=== PATIENT | male | born 1955 | race Hispanic/Latino ===

== ENCOUNTER 2021-07-14 10:42 | Outpatient (CLI) | payer BC | END 2021-07-14 10:43 | disposition home or self-care (01) | LOC: BICULT 10:42 | PROVIDERS: ATTEND Internal Medicine | DX: N28.1 Cyst of kidney, acquired (principal) | CPT/HCPCS: 76770 ==

== ENCOUNTER 2021-07-31 21:09 | Emergency (ER) | payer BC ==
[2021-07-31] MEDS ORDERED: Acetaminophen 500 MG TAB ONE (23:19)
[2021-08-01 12:27] LABS: SARS-CoV-2 PCR by NAA DETECTED (NotDetected)
== END 2021-07-31 23:30 | disposition home or self-care (01) ==
LOC: ERS 21:09
DX: U07.1 COVID-19 (principal); J32.9 Chronic sinusitis, unspecified; J02.9 Acute pharyngitis, unspecified; I10 Essential (primary) hypertension; E78.00 Pure hypercholesterolemia, unspecified
CPT/HCPCS: 71045; U0003; U0005

== ENCOUNTER 2021-08-04 13:45 | Inpatient (IN) | payer BC ==
[~2021-08-04 13:45] MED LIST: Iopamidol-370 76% 500 ML 1 ML ONE
[2021-08-04 15:26] LABS: Mean Corpuscular HGB CONC 34.8 g/dL (32.0-36.0); Mean Corpuscular Hemoglobin 32.2 pg (27.0-31.0); Mean Corpuscular Volume 92.7 fL (78.0-98.0); Platelet Count 404 thou/uL (130-400); RBC Distribution Width 12.8 % (11.5-14.5); Red Blood Cell (RBC) Count 4.35 mill/uL (4.70-6.10); White Blood Cell (WBC) Count 11.8 thou/uL (4.8-10.8)
[2021-08-04] MEDS ORDERED: Aspirin Chewable 81 MG TAB ONE (15:28)
[2021-08-04] MEDS ORDERED: Dexamethasone 10 MG/ML VIAL ONE (15:28)
[2021-08-04] MEDS ORDERED: Acetaminophen 500 MG TAB ONE (15:28)
[2021-08-04 15:32] LABS: ALT (SGPT) 59 U/L (8-55); AST (SGOT) 33 U/L (5-34); Albumin 3.5 g/dL (3.4-4.8); Alkaline Phosphatase 128 U/L (40-110); Anion Gap 14 mmol/L (10-20); BUN (Urea Nitrogen) 8 mg/dL (8.4-25.7); Bilirubin, Total 0.6 mg/dL (0.2-1.2); Calc. Creatinine Clearance 0 mL/min (70-130); Carbon Dioxide 25 mmol/L (23-31); Chloride 102 mmol/L (98-107); Glucose 102 mg/dL (80-115); Potassium 4.2 mmol/L (3.5-5.1); Protein, Total 7.5 g/dL (5.8-8.1); Sodium 137 mmol/L (136-145)
[2021-08-04 15:46] LABS: Band 16 % (5-11); Lymphocytes 12 % (21-51); MDiff Complete? YES; Metamyelocyte 2 % (0-0); Monocytes 6 % (0-10); Myelocyte 1 % (0-0); Neutrophil 62 % (42-75); Platelet Morphology Comment Appears Adequate; Polychromasia SLIGHT = 2-3 cells (100X) (0-2/hpf); Reactive Lymphocytes 1 % (0-10)
[2021-08-04] MEDS ORDERED: Senokot S 8.6-50 MG TAB PO PRN (19:32)
[2021-08-04] MEDS ORDERED: Calcium Carbonate 500 MG ChewTAB PO PRN (19:32)
[2021-08-04] MEDS ORDERED: Acetaminophen 325 MG TAB PO PRN (19:32)
[2021-08-04] MEDS ORDERED: Guaifenesin DM 100-10/5 ML UDCUP PO PRN (19:32)
[2021-08-04] MEDS ORDERED: Ondansetron PF 4 MG/2 ML Vial IVP PRN (19:32)
[2021-08-04] MEDS ORDERED: Bisacodyl 5 MG TAB PO PRN (19:32)
[2021-08-04] MEDS ORDERED: Melatonin 3 MG TAB PO PRN (19:43)
[2021-08-04] MEDS ORDERED: hydrALAZINE 20 MG/ML VIAL SLOW IVP PRN (19:43)
[2021-08-04] MEDS ORDERED: Famotidine/PF 20 mg/2ml Vial SLOW IVP SCH (21:00)
[2021-08-04] MEDS ORDERED: Ascorbic Acid 500 mg Chewable Tablet PO SCH (21:15)
[2021-08-04] MEDS ORDERED: Cholecalciferol (Vitamin D3) 400 UNITS TAB PO SCH (21:30)
[2021-08-04] MEDS ORDERED: Enoxaparin Sodium 40 MG/0.4 ML SYRINGE SC SCH (21:30)
[2021-08-04] MEDS: cefTRIAXone\\ROCEPHIN 2 GM in Sodium Chloride 0.9% 100 ML IVPB SCH (21:33)
[2021-08-04] MEDS: Azithromycin 500 MG in Sodium Chloride 0.9% 250 ML 250 ML IVPB SCH (21:33)
[2021-08-05] MEDS ORDERED: Dexamethasone 10 MG/ML VIAL SLOW IVP SCH (04:00)
[2021-08-05 06:51] LABS: Hemoglobin 14.1 g/dL (14.0-18.0); Mean Corpuscular HGB CONC 31.2 g/dL (32.0-36.0); Mean Corpuscular Hemoglobin 29.2 pg (27.0-31.0); Mean Corpuscular Volume 93.6 fL (78.0-98.0); Mean Platelet Volume 7.1 fL (7.4-10.4); Platelet Count 461 thou/uL (130-400); RBC Distribution Width 12.8 % (11.5-14.5); Red Blood Cell (RBC) Count 4.84 mill/uL (4.70-6.10); White Blood Cell (WBC) Count 9.7 thou/uL (4.8-10.8)
[2021-08-05] MEDS ORDERED: Loratadine 10 MG TAB PO PRN (06:56)
[2021-08-05] MEDS ORDERED: Artificial Tear Sol 15 ML BOT EA EYE PRN (06:56)
[2021-08-05] MEDS ORDERED: Loperamide HCl 2 MG CAP PO PRN (06:56)
[2021-08-05] MEDS ORDERED: Hydrocerin (Eucerin) Cream 120 gm Jar TOP PRN (06:56)
[2021-08-05] MEDS ORDERED: Ondansetron ODT 4 MG TAB SL PRN (06:56)
[2021-08-05] MEDS ORDERED: Cepastat Lozenges 1 LOZ PO PRN (06:56)
[2021-08-05] MEDS ORDERED: Zolpidem Tartrate 5 MG TAB PO PRN (06:56)
[2021-08-05] MEDS ORDERED: Sodium Chloride 0.65% Nasal 44 ML BOT EA NARE PRN (06:56)
[2021-08-05] MEDS ORDERED: Albuterol 200 PUFF (6.7GM INHALER) INH PRN (07:14)
[2021-08-05 07:24] LABS: Anion Gap 14 mmol/L (10-20); BUN (Urea Nitrogen) 14 mg/dL (8.4-25.7); Calc. Creatinine Clearance 154 mL/min (70-130); Calcium 9.1 mg/dL (7.8-10.44); Carbon Dioxide 25 mmol/L (23-31); Chloride 103 mmol/L (98-107); Glucose 116 mg/dL (80-115); Potassium 4.8 mmol/L (3.5-5.1); Sodium 137 mmol/L (136-145)
[2021-08-05 07:33] LABS: Band 2 % (5-11); Lymphocytes 9 % (21-51); MDiff Complete? YES; Monocytes 5 % (0-10); Neutrophil 83 % (42-75); Platelet Morphology Comment Appears Increased; RBC Morphology Normal; Reactive Lymphocytes 1 % (0-10)
[2021-08-05] MEDS: Enoxaparin Sodium 40 MG/0.4 ML SYRINGE SC SCH (08:31)
[2021-08-05] MEDS: Ascorbic Acid 500 mg Chewable Tablet PO SCH (08:31)
[2021-08-05] MEDS: GUAIFENESIN SF SOLN 200 MG/10 ML UDCUP PO PRN ×2 (08:31→15:22)
[2021-08-05] MEDS: Dexamethasone 10 MG/ML VIAL SLOW IVP SCH (08:31)
[2021-08-05] MEDS: Vitamin E 400 UNITS CAP PO SCH (08:32)
[2021-08-05] MEDS: Cholecalciferol 1,000 UNITS (25 MCG) TAB PO SCH (08:32)
[2021-08-05] MEDS: Zinc Sulfate 220 MG CAP PO SCH (08:32)
[2021-08-05] MEDS ORDERED: Prevnar 13-Val Conj/PF 0.5 ML SYRINGE IM ONE (09:00)
[2021-08-05] MEDS ORDERED: FLU VACC QS2021-22(6MOS UP)/PF 60 MCG/0.5 ML SYRINGE IM ONE (09:00)
[2021-08-05] MEDS ORDERED: Cholecalciferol (Vitamin D3) 400 UNITS TAB PO SCH (09:00)
[2021-08-05] MEDS ORDERED: Ascorbic Acid 500 mg Chewable Tablet PO SCH (09:00)
[2021-08-05] MEDS: Albuterol 200 PUFF (6.7GM INHALER) INH SCH ×2 (13:20→17:47)
[2021-08-05] MEDS: Azithromycin 500 MG in Sodium Chloride 0.9% 250 ML 250 ML IVPB SCH (20:34)
[2021-08-05] MEDS: cefTRIAXone\\ROCEPHIN 2 GM in Sodium Chloride 0.9% 100 ML IVPB SCH (21:40)
[2021-08-06] MEDS: Albuterol 200 PUFF (6.7GM INHALER) INH SCH ×4 (01:49→18:01)
[2021-08-06 06:38] LABS: ALT (SGPT) 69 U/L (8-55); AST (SGOT) 39 U/L (5-34); Albumin 3.4 g/dL (3.4-4.8); Alkaline Phosphatase 132 U/L (40-110); Anion Gap 17 mmol/L (10-20); BUN (Urea Nitrogen) 19 mg/dL (8.4-25.7); Bilirubin, Total 0.4 mg/dL (0.2-1.2); Calc. Creatinine Clearance 133 mL/min (70-130); Calcium 9.1 mg/dL (7.8-10.44); Carbon Dioxide 23 mmol/L (23-31); Chloride 105 mmol/L (98-107); Globulin 3.4 g/dL (2.4-3.5); Glucose 114 mg/dL (80-115); Potassium 4.5 mmol/L (3.5-5.1); Protein, Total 6.8 g/dL (5.8-8.1); Sodium 140 mmol/L (136-145)
[2021-08-06 07:01] LABS: Hemoglobin 13.7 g/dL (14.0-18.0); Mean Corpuscular HGB CONC 33.5 g/dL (32.0-36.0); Mean Corpuscular Volume 92.5 fL (78.0-98.0); Mean Platelet Volume 7.1 fL (7.4-10.4); Platelet Count 527 thou/uL (130-400); RBC Distribution Width 12.7 % (11.5-14.5); Red Blood Cell (RBC) Count 4.43 mill/uL (4.70-6.10)
[2021-08-06] MEDS: Ascorbic Acid 500 mg Chewable Tablet PO SCH (08:28)
[2021-08-06] MEDS: GUAIFENESIN SF SOLN 200 MG/10 ML UDCUP PO PRN ×3 (08:28→21:49)
[2021-08-06] MEDS: Enoxaparin Sodium 40 MG/0.4 ML SYRINGE SC SCH (08:28)
[2021-08-06] MEDS: Zinc Sulfate 220 MG CAP PO SCH (08:28)
[2021-08-06] MEDS: Cholecalciferol 1,000 UNITS (25 MCG) TAB PO SCH (08:28)
[2021-08-06] MEDS: Dexamethasone 10 MG/ML VIAL SLOW IVP SCH (08:29)
[2021-08-06] MEDS: Vitamin E 400 UNITS CAP PO SCH (08:29)
[2021-08-06] MEDS: Atorvastatin Calcium 40 MG TAB PO SCH (08:52)
[2021-08-06] MEDS ORDERED: NISOLDIPINE 34 MG PO SCH ×2 (09:00)
[2021-08-06 09:01] LABS: Band 5 % (5-11); Lymphocytes 11 % (21-51); MDiff Complete? YES; Monocytes 7 % (0-10); Neutrophil 73 % (42-75); Platelet Morphology Comment Appears Increased; RBC Morphology Normal; Reactive Lymphocytes 4 % (0-10)
[2021-08-06] MEDS: Benzonatate 100 MG CAP PO PRN (21:49)
[2021-08-07] MEDS: Albuterol 200 PUFF (6.7GM INHALER) INH SCH ×2 (01:00→07:03)
[2021-08-07] MEDS: Dexamethasone 10 MG/ML VIAL SLOW IVP SCH (08:33)
[2021-08-07] MEDS: Atorvastatin Calcium 40 MG TAB PO SCH (08:33)
[2021-08-07] MEDS: Cholecalciferol 1,000 UNITS (25 MCG) TAB PO SCH (08:33)
[2021-08-07] MEDS: Vitamin E 400 UNITS CAP PO SCH (08:33)
[2021-08-07] MEDS: GUAIFENESIN SF SOLN 200 MG/10 ML UDCUP PO PRN (08:33)
[2021-08-07] MEDS: Enoxaparin Sodium 40 MG/0.4 ML SYRINGE SC SCH (08:33)
[2021-08-07] MEDS: Zinc Sulfate 220 MG CAP PO SCH (08:33)
[2021-08-07] MEDS: Benzonatate 100 MG CAP PO PRN (08:33)
[2021-08-07] MEDS: Ascorbic Acid 500 mg Chewable Tablet PO SCH (08:33)
[2021-08-07 08:49] VITALS: BP 130/67; TEMP 98.6
== END 2021-08-07 11:28 | disposition home or self-care (01) | DRG 871 ==
LOC: ERS 13:45 → T4-A 18:18
PROVIDERS: ADMIT Internal Medicine; ATTEND Internal Medicine
PROC: 8E0ZXY6 Isolation (ICD-10-PCS; principal; 2021-08-04)
PROC: 3E0333Z Introduction of Anti-inflammatory into Peripheral Vein, Percutaneous Approach (ICD-10-PCS; 2021-08-04)
DX: A41.89 Other specified sepsis (principal); U07.1 COVID-19; J12.82 Pneumonia due to coronavirus disease 2019; J96.01 Acute respiratory failure with hypoxia; R65.20 Severe sepsis without septic shock; I10 Essential (primary) hypertension; E78.00 Pure hypercholesterolemia, unspecified; R74.01 Elevation of levels of liver transaminase levels; E78.5 Hyperlipidemia, unspecified; E66.9 Obesity, unspecified; Z90.49 Acquired absence of other specified parts of digestive tract; Z88.5 Allergy status to narcotic agent; Z98.890 Other specified postprocedural states; Z82.49 Family history of ischemic heart disease and other diseases of the circulatory system
CPT/HCPCS: 36415; 71045; 71275; 80048; 80053; 82728; 83880; 84484; 85025; 85379; 86140; 93005; 96374; J0456; J0696; J1100; J1650; J3490; J7050; Q9967; S0028